=== PATIENT | female | born 1975 | race Caucasian/White ===

== ENCOUNTER 2021-05-25 16:23 | Emergency (ER) | payer OTHER ==
[~2021-05-25 16:23] MED LIST: ASPIRIN CHEWABL81 MG PO; BUSPIRONE HCL15 MG PO; CYMBALTA60 MG PO; HCTZ12.5 MG PO; IBUPROFEN800 MG PO; LEVAQUIN750 MG PO; MACROBID100 MG PO; NORVASC5 MG PO; XANAX0.5 MG PO
[2021-05-25 18:28] LABS: BASOPHIL 0.5 % (0-2); EOSINOPHIL 1.4 % (0-5); HCT 45.8 % (37.0-47.0); HGB 15.3 g/dl (12.5-16.0); MCH 29.9 pg (25.0-31.0); MCHC 33.4 g/dL (32.0-36.0); MCV 89.5 fL (78.0-100.0); MONOCYTE 5.9 % (0-12); MPV 11.3 fL (6.0-9.5); NEUTROPHIL 66.3 % (41-80); NRBC 0; PLT 269 K/uL (150-400); RBC 5.12 M/uL (4.20-5.40); RDW 14.2 % (11.5-14.0); WBC 13.5 K/uL (4.0-10.5)
[2021-05-25 18:47] LABS: BUN 16 mg/dL (7-18); BUN/CREAT RATIO (CALC) 21.9 RATIO; CHLORIDE 100 mmol/L (98-107); CO2 (BICARBONATE) 27 mmol/L (21-32); CREATININE 0.73 mg/dL (0.51-0.95); GLUCOSE 86 mg/dL (74-106); POTASSIUM 3.5 mmol/L (3.5-5.1)
[2021-05-25 19:55] LABS: CORONAVIRUS 2019 SARS-COV-2 NEGATIVE (NEGATIVE); INFLUENZA A NAA NEGATIVE (NEGATIVE)
== END 2021-05-25 22:26 | disposition home or self-care (01) ==
LOC: FER 16:23
PROVIDERS: Internal Medicine
DX: R07.89 Other chest pain (principal); R00.2 Palpitations; I10 Essential (primary) hypertension; Z20.822 Contact with and (suspected) exposure to COVID-19; Z88.0 Allergy status to penicillin; Z88.6 Allergy status to analgesic agent
CPT/HCPCS: 36415; 71275; 80048; 84145; 84484; 85025; 93005; Q9967; U0002